=== PATIENT | female | born 2000 | race Caucasian/White ===

== ENCOUNTER 2022-02-16 16:04 | Observation (INO) | payer OTHER ==
[~2022-02-16] VITALS: Ht 167.7 cm; Wt 83.9 kg
[2022-02-16] VITALS (8 sets, daily range): BP systolic 126–146; BP diastolic 82–119
[2022-02-16] MEDS ORDERED: KETOROLAC 15 MG/ML VIAL IVP ONE (16:30)
[2022-02-16 16:46] LABS: BILIRUBIN,URINE NEGATIVE (NEGATIVE); CLARITY,URINE CLEAR; COLOR,URINE YELLOW; GLUCOSE, URINE (UA) NEGATIVE (NEGATIVE); KETONES,URINE NEGATIVE (NEGATIVE); LEUKOCYTE ESTERASE ,URINE TRACE (NEGATIVE); NITRITE,URINE NEGATIVE (NEGATIVE); PROTEIN,URINE TRACE (NEGATIVE)
[2022-02-16 16:51] LABS: BASOPHILS # (AUTO) 0.1 10^3/uL (0.0-0.1); BASOPHILS % (AUTO) 1 % (0-10); EOSINOPHILS # (AUTO) 0.3 10^3/uL (0.0-0.3); EOSINOPHILS % (AUTO) 2 % (0-10); HEMATOCRIT 38 % (35-52); HEMOGLOBIN 12.8 g/dL (11.5-16.0); LYMPHOCYTES # (AUTO) 3.6 10^3/uL (1.0-4.0); LYMPHOCYTES % (AUTO) 26 % (12-44); MEAN CORPUSCULAR HEMOGLOBIN 30 pg (25-34); MEAN CORPUSCULAR HGB CONC 34 g/dL (32-36); MEAN CORPUSCULAR VOLUME 87 fL (80-99); MEAN PLATELET VOLUME 10.1 fL (9.0-12.2); MONOCYTES % (AUTO) 7 % (0-12); NEUTROPHILS # (AUTO) 8.8 10^3/uL (1.8-7.8); NEUTROPHILS % (AUTO) 64 % (42-75); PLATELET COUNT 306 10^3/uL (130-400); WHITE BLOOD COUNT 13.8 10^3/uL (4.3-11.0)
[2022-02-16 16:54] LABS: ALBUMIN 4.4 GM/DL (3.2-4.5)
[2022-02-16 16:55] LABS: POTASSIUM 3.3 MMOL/L (3.6-5.0)
--- NOTE | 2022-02-16 16:55 | ED Abdominal Pain ---
General Chief Complaint: Abdominal/GI Problems Stated Complaint: LOWER RIGHT SIDE ABD PAIN Nursing Triage Note: PT AMB TO [facility] 6 WITH COMPLAINT OF RLQ PAIN THAT STARTED EARLY YESTERDAY MORNING. STATES HAS FELT NAUSEATED. PAIN WORSE WHEN WALKING. (TIERRA PIMENTEL APRN) History of Present Illness Date Seen by Provider: Feb 16, 2022 Time Seen by Provider: 16:10 Initial Comments Patient is a previously 21-year-old female who presents to the emergency department for evaluation of right lower quadrant abdominal pain that began yesterday morning. Patient states the pain is persisted since that time. She denies any nausea/vomiting/diarrhea. States the pain is worse with walking. She denies having any fever. Denies any urinary symptomology. Denies any history of similar symptoms. Denies any history of abdominal surgeries. Patient has not had anything for the pain today. LMP was approximately 1 month ago per her report. (TIERRA PIMENTEL APRN) Allergies and Home Medications Allergies Coded Allergies: No Known Drug Allergies (Unverified , 02/16/22) Patient Home Medication List Home Medication List Reviewed: Yes (TIERRA PIMENTEL APRN) Review of Systems Review of Systems Constitutional: no symptoms reported EENTM: No Symptoms Reported Respiratory: No Symptoms Reported Cardiovascular: No Symptoms Reported Gastrointestinal: See HPI Genitourinary: No Symptoms Reported (TIERRA PIMENTEL APRN) Past Phnzdgs-Kuwcua-Bbtahz Hx Patient Social History Tobacco Use?: No Use of E-Cig and/or Vaping dev: Yes E-Cig or Vaping type used: Nicotine Use of E-Cig and/or Vaping Arnold: Current Someday User Substance use?: No Alcohol Use?: No Alcohol Frequency: Once in a while Pt feels they are or have been: No (TIERRA PIMENTEL APRN) Immunizations Up To Date First/Initial COVID19 Vaccinat: 2020 Second COVID19 Vaccination Nabil: 2020 (TIERRA PIMENTEL APRN) Physical Exam Vital Signs Vital Signs - First Documented 02/16/22 16:10 Temp 37.8 Pulse 107 Resp 22 B/P (MAP) 158/114 (129) Pulse Ox 98 O2 Delivery Room Air (ANDRIA SOSA MD) Vital Signs Capillary Refill : Less Than 3 Seconds (TIERRA PIMENTEL APRN) Height/Weight/BMI Height: '" Weight: lbs. oz. kg; 29.00 BMI Method: General Appearance: WD/WN, no apparent distress HEENT: PERRL/EOMI, normal ENT inspection, TMs normal, pharynx normal Neck: non-tender, full range of motion Respiratory: chest non-tender, lungs clear, normal breath sounds, no respiratory distress, no accessory muscle use Cardiovascular: regular rate, rhythm Gastrointestinal: normal bowel sounds, soft; No guarding; tenderness (Right lower quadrant) Extremities: normal range of motion, non-tender Back: normal inspection, no vertebral tenderness Neurologic/Psychiatric: no motor/sensory deficits, alert, normal mood/affect, oriented x 3 Skin: normal color, warm/dry (TIERRA PIMENTEL APRN) Progress/Results/Core Measures Results/Orders Lab Results Laboratory Tests Test 02/16/22 16:25 02/16/22 16:39 Range/Units White Blood Count 13.8 H 4.3-11.0 10^3/uL Red Blood Count 4.34 3.80-5.11 10^6/uL Hemoglobin 12.8 11.5-16.0 g/dL Hematocrit 38 35-52 % Mean Corpuscular Volume 87 80-99 fL Mean Corpuscular Hemoglobin 30 25-34 pg Mean Corpuscular Hemoglobin Concent 34 32-36 g/dL Red Cell Distribution Width 12.1 10.0-14.5 % Platelet Count 306 130-400 10^3/uL Mean Platelet Volume 10.1 9.0-12.2 fL Immature Granulocyte % (Auto) 0 % Neutrophils (%) (Auto) 64 42-75 % Lymphocytes (%) (Auto) 26 12-44 % Monocytes (%) (Auto) 7 0-12 % Eosinophils (%) (Auto) 2 0-10 % Basophils (%) (Auto) 1 0-10 % Neutrophils # (Auto) 8.8 H 1.8-7.8 10^3/uL Lymphocytes # (Auto) 3.6 1.0-4.0 10^3/uL Monocytes # (Auto) 1.0 0.0-1.0 10^3/uL Eosinophils # (Auto) 0.3 0.0-0.3 10^3/uL Basophils # (Auto) 0.1 0.0-0.1 10^3/uL Immature Granulocyte # (Auto) 0.0 0.0-0.1 10^3/uL Sodium Level 138 135-145 MMOL/L Potassium Level 3.3 L 3.6-5.0 MMOL/L Chloride Level 106 98-107 MMOL/L Carbon Dioxide Level 22 21-32 MMOL/L Anion Gap 10 5-14 MMOL/L Blood Urea Nitrogen 9 7-18 MG/DL Creatinine 0.82 0.60-1.30 MG/DL Estimat Glomerular Filtration Rate 106 BUN/Creatinine Ratio 11 Glucose Level 97 70-105 MG/DL Calcium Level 9.4 8.5-10.1 MG/DL Corrected Calcium 9.1 8.5-10.1 MG/DL Total Bilirubin 0.3 0.1-1.0 MG/DL Aspartate Amino Transf (AST/SGOT) 16 5-34 U/L Alanine Aminotransferase (ALT/SGPT) 21 0-55 U/L Alkaline Phosphatase 42 40-136 U/L C-Reactive Protein High Sensitivity 14.91 H 0.00-0.50 MG/DL Total Protein 7.9 6.4-8.2 GM/DL Albumin 4.4 3.2-4.5 GM/DL Urine Color YELLOW Urine Clarity CLEAR Urine pH 6.0 5-9 Urine Specific [place] 1.025 H 1.016-1.022 Urine Protein TRACE H NEGATIVE Urine Glucose (UA) NEGATIVE NEGATIVE Urine Ketones NEGATIVE NEGATIVE Urine Nitrite NEGATIVE NEGATIVE Urine Bilirubin NEGATIVE NEGATIVE Urine Urobilinogen 0.2 < = 1.0 MG/DL Urine Leukocyte Esterase TRACE H NEGATIVE Urine RBC (Auto) 1+ H NEGATIVE Urine RBC RARE /HPF Urine WBC 5-10 H /HPF Urine Squamous Epithelial Cells 2-5 /HPF Urine Crystals NONE /LPF Urine Bacteria FEW H /HPF Urine Casts NONE /LPF Urine Mucus NEGATIVE /LPF Urine Culture Indicated YES Urine Test NEGATIVE NEGATIVE (ANDRIA SOSA MD) Medications Given in ED Current Medications Medications Dose Ordered Sig/Jaden Route Start Time Stop Time Status Last Admin Dose Admin Iohexol 100 ml ONCE ONCE IV 02/16/22 17:15 02/16/22 17:16 DC 02/16/22 17:27 80 ML Ketorolac Tromethamine 15 mg ONCE ONCE IVP 02/16/22 16:30 02/16/22 16:31 DC 02/16/22 16:41 15 MG Lidocaine/ Epinephrine 10 ml STK-MED ONCE .ROUTE 02/16/22 18:20 02/16/22 18:22 DC 02/16/22 19:41 15 ML Sodium Chloride 100 ml ONCE ONCE IV 02/16/22 17:15 02/16/22 17:16 DC 02/16/22 17:27 80 ML (ANDRIA SOSA MD) Vital Signs/I&O 02/16/22 16:10 Temp 37.8 Pulse 107 Resp 22 B/P (MAP) 158/114 (129) Pulse Ox 98 O2 Delivery Room Air (ANDRIA SOSA MD) Blood Pressure Mean: 129 Progress Progress Note : Progress Note Patient is nontoxic and well-hydrated on exam. She does have some right lower quadrant abdominal tenderness to palpation without marked guarding. Heel tap is negative. Will obtain labs and CT of the abdomen/pelvis. Laboratory evaluation notable for leukocytosis and elevated CRP. CT of the abdomen pelvis notes acute appendicitis. General surgery was contacted who agrees to see the patient. (TIERRA PIMENTEL APRN) Departure Impression Primary Impression: Acute appendicitis Qualified Codes: K35.30 - Acute appendicitis with localized peritonitis, without perforation or gangrene Disposition: ADMITTED INPATIENT Condition: Stable Admissions Decision to Admit Reason: Admit from ER (General) Decision to Admit/Date: Feb 16, 2022 Time/Decision to Admit Time: 18:00 (TIERRA PIMENTEL APRN) Departure-Patient Inst. Referrals: [facility] (PCP/Family) Primary Care Physician ATTENDING PHYSICIAN NOTE: I was physically present as attending physician in the emergency department during the care of this patient, but I was not directly involved in the decision making or delivery of care for this patient. (ANDRIA SOSA MD) TIERRA PIMENTEL APRN Feb 16, 2022 16:55 ANDRIA SOSA MD Feb 16, 2022 20:23
[2022-02-16 16:56] LABS: CALCIUM 9.4 MG/DL (8.5-10.1)
[2022-02-16 16:57] LABS: TOTAL PROTEIN 7.9 GM/DL (6.4-8.2)
[2022-02-16 16:58] LABS: BACTERIA,URINE FEW /HPF; RBC,URINE RARE /HPF
[2022-02-16 16:59] LABS: BILIRUBIN,TOTAL 0.3 MG/DL (0.1-1.0)
[2022-02-16 17:01] LABS: CREATININE SERUM 0.82 MG/DL (0.60-1.30)
[2022-02-16] MEDS ORDERED: IOHEXOL 350 MG/ML 100 ML (OMNIPAQUE 350) VIAL IV ONE (17:15)
[2022-02-16] MEDS ORDERED: NS 100 ML (IVPB) BAG IV ONE (17:15)
--- NOTE | 2022-02-16 17:39 | Diagnostic Imaging Report ---
PROCEDURE: CT abdomen and pelvis with contrast, rule out appendicitis. TECHNIQUE: Multiple contiguous axial images were obtained through the abdomen and pelvis after the administration of intravenous contrast. All CT scans use one or more of the following dose optimizing techniques: automated exposure control, MA and/or KvP adjustment based on patient size and exam type or iterative reconstruction. INDICATION: Right lower quadrant pain. FINDINGS: Lung bases are clear. Liver appears normal. The gallbladder appears normal. Portal vein is patent. Pancreas appears normal. Common duct is not dilated. Spleen is not enlarged. Adrenals are normal. Kidneys appear normal. Small bowel is not dilated. The appendix is thickened with surrounding edema suggesting acute appendicitis. Colon is unremarkable. Uterus and adnexa are unremarkable. Urinary bladder is decompressed. IMPRESSION: Acute appendicitis. There is no periappendiceal abscess or evidence of perforation. Dictated by: Dictated on workstation # [id number]
[2022-02-16] MEDS ORDERED: LIDOCAINE/EPI 1%-1:100,000 (XYLOCAINE) 10 ML ONE (18:20)
[2022-02-16] MEDS ORDERED: LIDOCAINE PF 2% 5 ML (XYLOCAINE) VIAL ONE (18:36)
[2022-02-16] MEDS ORDERED: ROCURONIUM 10 MG/ML 5 ML SYRINGE IV ONE (18:36)
[2022-02-16] MEDS ORDERED: MIDAZOLAM 2 MG/2 ML (VERSED) VIAL ONE (18:36)
[2022-02-16] MEDS ORDERED: fentaNYL INJ 100 MCG/2 ML AMP ONE ×2 (18:36→19:49)
[2022-02-16] MEDS ORDERED: ONDANSETRON 4 MG/2 ML (SDV) Z0FRAN ONE (18:36)
[2022-02-16] MEDS ORDERED: proPOfol 200 MG/20 ML (DIPRIVAN) VIAL IV ONE (18:36)
--- NOTE | 2022-02-16 18:56 | Consultation - Surgery ---
CHINO GREEN 02/16/22 1856: History of Present Illness History of Present Illness Patient Consulted On(dylan/time) 02/16/22 18:41 Date Seen by Provider: Feb 16, 2022 Time Seen by Provider: 18:42 History of Present Illness Surgery consult for patient Gerardo Gordon, 21 yo F, who arrived to ED with chief complaint of abdominal pain. Gerardo was woke from sleep yesterday at 4am due to sudden abdominal pain. Since that time it has been constant in the RLQ and radiating toward her umbilicus. Described as tight and cramping and is 6 or 7/10 when at rest. The pain worsens with movement and escalates to 8/10. Tylenol has helped some.Nothing triggered the pain and this has never happened to her before. She was seen at [facility] at 3:30pm today. They were concerned for potential appendicitis or ovarian cyst and referred her to the hospital. Pt note they performed a UA at [facility] and she was informed that there was trace blood in her urine. Pt states date of last menstrual period was just short of 1 month ago. She has nothing to drink since 4pm today and nothing to eat since 1pm today. Denies use of anticoagulant medication. Meds: Oral control, Tylenol prn All: none PMH: none PSH: laser treatments for birthmark on right side of her face (was placed under anesthesia) FamHx: none; both mother and father are living SocHx: pt uses nicotine positive vape; has approx 5 alcoholic drinks every few weeks; denies tobacco and illicit substance use Allergies and Home Medications Allergies Coded Allergies: No Known Drug Allergies (Unverified , 02/16/22) Patient Home Medication List Home Medication List Reviewed: Yes Past Ryngtkd-Vbvogl-Vcsyxl Hx Patient Social History Smoking Status: Never a Smoker Type Used: Electronic/Vapor (positve for nicotine) Alcohol Use?: Yes (pt reports having maybe 5 drinks approx every few weeks) Substance type: Nicotine (vape) Have you traveled recently?: No Surgeries History of Surgeries: No (pt has had laser treatment on right face for birthmark) Respiratory History of Respiratory Disorde: No Cardiovascular History of Cardiac Disorders: No Neurological History of Neurological Disord: No Reproductive System : No Genitourinary History of Genitourinary Disor: No Gastrointestinal History of Gastrointestinal Di: No Musculoskeletal History of Musculoskeletal Dis: No Endocrine History of Endocrine Disorders: No HEENT History of HEENT Disorders: No Loss of Vision: Denies Cancer History of Cancer: No Psychosocial History of Psychiatric Problem: No Integumentary History of Skin or Integumenta: No Blood Transfusions History of Blood Disorders: No Family Medical History Significant Family History: No Pertinent Family Hx (pt states there is no family medical hx and both mother and father are still living) Review of Systems-General Constitutional: fever; No malaise, No weakness EENTM: No blurred vision, No vision loss, No epistaxis Respiratory: No cough, No short of breath Cardiovascular: No chest pain, No palpitations Gastrointestinal: RLQ, abdominal pain (RLQ); No constipation, No diarrhea; nausea (infrequent nausea yesterday); No vomiting Genitourinary: No dysuria; hematuria (1+ RBCs on UA) : No (negative urine test 02/16) Musculoskeletal: No muscle pain, No muscle stiffness Skin: No dryness, No rash Psychiatric/Neurological: Denies Headache, Denies Numbness, Denies Paresthesia, Denies Tingling, Denies Weakness Physical Exam-General Problems Physical Exam Vital Signs Vital Signs - First Documented 02/16/22 16:10 Temp 37.8 Pulse 107 Resp 22 B/P (MAP) 158/114 (129) Pulse Ox 98 O2 Delivery Room Air Capillary Refill : Less Than 3 Seconds General Appearance: no apparent distress, obese Eyes: Bilateral Eye PERRL, Bilateral Eye EOMI HEENT: PERRL/EOMI; No scleral icterus (R), No scleral icterus (L), No photophobia Neck: non-tender, supple Respiratory: chest non-tender, no respiratory distress, no accessory muscle use Cardiovascular: regular rate, rhythm, no murmur, tachycardia Peripheral Pulses: 2+ Radial Pulses (R), 2+ Radial Pulses (L) Gastrointestinal: normal bowel sounds, soft, no organomegaly, tenderness (RLQ) Rectal: deferred Back: no CVA tenderness, no vertebral tenderness Extremities: normal range of motion, non-tender, no pedal edema Neurologic/Psychiatric: alert, oriented x 3 Skin: normal color, warm/dry; No diaphoresis Lymphatic: no adenopathy Data Review Labs Laboratory Tests 02/16/22 16:25: White Blood Count 13.8H, Red Blood Count 4.34, Hemoglobin 12.8, Hematocrit 38, Mean Corpuscular Volume 87, Mean Corpuscular Hemoglobin 30, Mean Corpuscular He moglobin Concent 34, Red Cell Distribution Width 12.1, Platelet Count 306, Mean Platelet Volume 10.1, Immature Granulocyte % (Auto) 0, Neutrophils (%) (Auto) 64, Lymphocytes (%) (Auto) 26, Monocytes (%) (Auto) 7, Eosinophils (%) (Auto) 2, Basophils (%) (Auto) 1, Neutrophils # (Auto) 8.8H, Lymphocytes # (Auto) 3.6, Monocytes # (Auto) 1.0, Eosinophils # (Auto) 0.3, Basophils # (Auto) 0.1, Immature Granulocyte # (Auto) 0.0, Sodium Level 138, Potassium Level 3.3L, Chlor lemuel Level 106, Carbon Dioxide Level 22, Anion Gap 10, Blood Urea Nitrogen 9, Creatinine 0.82, Estimat Glomerular Filtration Rate 106, BUN/Creatinine Ratio 11, Glucose Level 97, Calcium Level 9.4, Corrected Calcium 9.1, Total Bilirubin 0.3, Aspartate Amino Transf (AST/SGOT) 16, Alanine Aminotransferase (ALT/SGPT) 21, Alkaline Phosphatase 42, C-Reactive Protein High Sensitivity 14.91H, Total Protein 7.9, Albumin 4.4 02/16/22 16:39: Urine Color YELLOW, Urine Clarity CLEAR, Urine pH 6.0, Urine Specific [place] 1.025H, Urine Protein TRACEH, Urine Glucose (UA) NEGATIVE, Urine Ketones NEGATIVE, Urine Nitrite NEGATIVE, Urine Bilirubin NEGATIVE, Urine Urobilinogen 0.2, Urine Leukocyte Esterase TRACEH, Urine RBC (Auto) 1+H, Urine RBC RARE, Urine WBC 5-10H, Urine Squamous Epithelial Cells 2-5, Urine Crystals NONE, Urine Bacteria FEWH, Urine Casts NONE, Urine Mucus NEGATIVE, Urine Culture Indicated YES, Urine Test NEGATIVE Radiology NAME: GERARDO GORDON [facility] REC#: [id number] PT STATUS: REG ER : 2002 PHYSICIAN: TIERRA PIMENTEL APRN ADMIT DATE: 02/16/22/ER Signed Date of Exam:02/16/22 CT ABD/PELV W (APPENDICITIS) PROCEDURE: CT abdomen and pelvis with contrast, rule out appendicitis. TECHNIQUE: Multiple contiguous axial images were obtained through the abdomen and pelvis after the administration of intravenous contrast. All CT scans use one or more of the following dose optimizing techniques: automated exposure control, MA and/or KvP adjustment based on patient size and exam type or iterative reconstruction. INDICATION: Right lower quadrant pain. FINDINGS: Lung bases are clear. Liver appears normal. The gallbladder appears normal. Portal vein is patent. Pancreas appears normal. Common duct is not dilated. Spleen is not enlarged. Adrenals are normal. Kidneys appear normal. Small bowel is not dilated. The appendix is thickened with surrounding edema suggesting acute appendicitis. Colon is unremarkable. Uterus and adnexa are unremarkable. Urinary bladder is decompressed. IMPRESSION: Acute appendicitis. There is no periappendiceal abscess or evidence of perforation. Dictated by: Dictated on workstation # [id number] Dict: 02/16/22 1737 Trans: 02/16/22 1750 [id number] Interpreted by: MANSI MCGARRY MD Electronically signed by: MANSI MCGARRY MD 02/16/22 1750 Assessment/Plan Assessment/Plan Assessment/Plan Acute Appendicitis Leukocytosis Elevated CRP WBC, RBC, and bacteria in UA Appendectomy Pain management IV ketoralac IV antibiotic start for potential infection ARACELI CAMARA DO 02/16/22 1926: History of Present Illness History of Present Illness Time Seen by Provider: 18:46 History of Present Illness Surgery asked to consult regarding RLQ pain, CT shows appendicitis. HPI: pt is a 21yo female with RLQ pain that woke her at 4am on Wednesday and has not gone away. Radiates to umbilicus. Allergies and Home Medications Allergies Coded Allergies: No Known Drug Allergies (Unverified , 02/16/22) Patient Home Medication List Home Medication List Reviewed: Yes Past Mkcehrv-Rrfwsi-Luimtu Hx Patient Social History Smoking Status: Never a Smoker Type Used: Electronic/Vapor (positve for nicotine) Alcohol Use?: Yes (pt reports having maybe 5 drinks approx every few weeks) Substance type: Nicotine (vape) Surgeries History of Surgeries: No (pt has had laser treatment on right face for birthmark) Respiratory History of Respiratory Disorde: No Cardiovascular History of Cardiac Disorders: No Neurological History of Neurological Disord: No Reproductive System : No Genitourinary History of Genitourinary Disor: No Gastrointestinal History of Gastrointestinal Di: No Musculoskeletal History of Musculoskeletal Dis: No Endocrine History of Endocrine Disorders: No HEENT History of HEENT Disorders: No Loss of Vision: Denies Hearing Impairment: Denies Cancer History of Cancer: No Psychosocial History of Psychiatric Problem: No Integumentary History of Skin or Integumenta: No Blood Transfusions History of Blood Disorders: No Family Medical History Significant Family History: Diabetes (states parents do not have DM) Review of Systems-General Constitutional: fever; No malaise, No weakness EENTM: No blurred vision, No vision loss, No epistaxis Respiratory: No cough, No short of breath Cardiovascular: No chest pain, No palpitations Gastrointestinal: abdominal pain (RLQ); No constipation, No diarrhea; nausea (infrequent nausea yesterday); No vomiting Genitourinary: No dysuria; hematuria (1+ RBCs on UA) : No (negative urine test 02/16) Musculoskeletal: No muscle pain, No muscle stiffness Skin: No dryness; lesions (birthmark, right sided of face), rash Psychiatric/Neurological: Denies Headache, Denies Numbness, Denies Paresthesia, Denies Tingling, Denies Weakness Physical Exam-General Problems Physical Exam General Appearance: no apparent distress, obese Eyes: Bilateral Eye PERRL, Bilateral Eye EOMI HEENT: No scleral icterus (R), No scleral icterus (L), No photophobia Neck: non-tender, supple Respiratory: chest non-tender, lungs clear, normal breath sounds, no resp iratory distress, no accessory muscle use Cardiovascular: no murmur, tachycardia Peripheral Pulses: 2+ Radial Pulses (R), 2+ Radial Pulses (L) Gastrointestinal: normal bowel sounds, soft, no organomegaly, tenderness (RLQ), hernia (small umbilical) Rectal: deferred Back: no CVA tenderness, no vertebral tenderness Extremities: normal range of motion, non-tender, no pedal edema Neurologic/Psychiatric: crosscutter II-XII nml as tested, alert, normal mood/affect, oriented x 3 Skin: normal color, warm/dry; No diaphoresis; other (large birthmark on right cheek) Lymphatic: no adenopathy (neck, axilla or groin) Assessment/Plan Assessment/Plan Assessment/Plan Acute Appendicitis Leukocytosis Elevated CRP WBC, RBC, and bacteria in UA I reviewed the CT myself and saw a small umbilical hernia and possible ovarian cyst on the right; will look during surgery. Plan is Laparoscopic Appendectomy possible open; will get consent. Went over risks and complications not limited to pain, bleeding, infection, scar, damage to bowel and need for further procedure. Will take her tonight to OR, pain meds, IV ABX sap solution manager consultant to OR. I also discussed her case with ER provider. All questions answered to her satisfaction. Supervisory-Addendum Brief Verification & Attestation Participated in pt care: history, MDM, physical Personally performed: exam, history, MDM, supervision of care Care discussed with: Medical Student Procedures: n/a Verification and Attestation of Medical Student E/M Service A medical student performed and documented this service. I then reviewed and verified all information documented by the medical student and made modifications to such information, when appropriate. I personally performed a physical exam, medical decision making and then discussed any differences between the notes and made revisions as necessary to create one note. Araceli Camara , 02/16/22 , 19:30 CHINO GREEN Feb 16, 2022 18:56 ARACELI CAMARA DO Feb 16, 2022 19:26
[2022-02-16] MEDS ORDERED: ceFAZolin INJECTION 2,000 MG ONE (19:43)
[2022-02-16] MEDS ORDERED: GLYCOPYRROLATE 0.2 MG/ML (ROBINUL) 2 ML VIAL ONE (20:05)
[2022-02-16] MEDS ORDERED: NEOSTIGMINE (BLOXIVERZ ) 1 MG/1ML 10 ML VIAL ONE (20:05)
[2022-02-16] MEDS ORDERED: SEVOFLURANE (ULTANE) 15 ML INHAL SOLN ONE (20:08)
--- NOTE | 2022-02-16 20:13 | Progress Note-Post Operative ---
Post-Operative Progess Note Surgeon (s)/Counseling Case Manager (s) Surgeon ARACELI CAMARA DO Counseling Case Manager: YVES Watson Pre-Operative Diagnosis Acute appy Post-Operative Diagnosis same Procedure & Operative Findings Date of Procedure 02/16/22 Procedure Performed/Findings PROCEDURE: Laparoscopic appendectomy. COMPLICATIONS: None. INDICATIONS: The patient is a 21 year old female who has been having right lower quadrant abdominal pain. Patient's exam consistent with appendicitis. I discussed risk and benefits of laparoscopic appendectomy and all indicated procedures with the possibility being a normal appendix. The patient understands the risks and benefits and wishes to proceed. Consent was signed on the chart. DESCRIPTION OF PROCEDURE: The patient was taken to the operating suite, prepped and draped in a sterile fashion. Timeout was performed. Local anesthetic was infiltrated just above the umbilicus and a #11- blade scalpel was used to make a skin incision. Cautery was used to dissect down to the fascia and scored. Kochers were used to grasp and elevate it and the abdomen was then entered. A 0 Vicryl was placed in a [id number] fashion for closure at the end of the case. The balloon trocar was inserted into the abdomen and pneumoperitoneum was achieved. Under direct visualization of the laparoscope, a 5 mm trocar was placed in the suprapubic region and a 5 mm trocar was placed in the left lower quadrant. Appendix was located,it was inflamed and thickened. The mesoappendix was divided using the Ligasure in a stepwise fashion; clamping, coagulating and then transecting. In this fashion dividing the meso- appendix so that we were at the base of the appendix. Once at the base an Endo- CHECO 2.5 stapler was then fired across the appendix. It was then placed in an Endobag and removed through the 12 mm trocar site. The abdomen was then irrigated and suctioned. No other pathology noted. The abdomen was then desufflated and the trocars were removed. The 0 Vicryl placed at the beginning of the case was then tied closing the 12 mm fascial defect. The skin was then closed using 4-0 Monocryl in a subcuticular fashion. The abdomen was then washed and dried and Skin Affix was placed over the inc isions. The patient tolerated the procedure well without any complications and was taken to the recovery room in stable condition. Anesthesia Type GET Estimated Blood Loss Estimated blood loss (mL): scant Specimens/Packing Specimens Removed appendix ARACELI CAMARA DO Feb 16, 2022 20:13
[2022-02-16] MEDS ORDERED: HYDROcodone/APAP 5 MG/325 MG (LORTAB) TAB PO PRN (20:15)
[2022-02-16] MEDS ORDERED: ONDANSETRON 4 MG/2 ML (SDV) Z0FRAN IVP PRN ×2 (20:15→20:30)
[2022-02-16] MEDS ORDERED: SUGAMMADEX 500 MG/5 ML VIAL (BRIDION) IV ONE (20:20)
[2022-02-16] MEDS ORDERED: HYDROmorphone 2 MG/ML VIAL (DILAUDID) IV ONE (20:30)
[2022-02-16] MEDS ORDERED: morphine INJ 10 MG/ML 1ML (SYR OR VIAL) IVP ONE (20:30)
[2022-02-16] MEDS ORDERED: MEPERIDINE (DEMEROL) INJ 50 MG/ML IVP ONE (20:30)
[2022-02-16] MEDS ORDERED: PROMETHAZINE INJ 25 MG/ML (PHENERGAN) AMP IVP ONE (20:30)
[2022-02-16] MEDS: LACTATED RINGERS 1,000 ML IV SCH (20:41)
[2022-02-16] MEDS: ceFAZolin INJECTION 2,000 MG in NS (IVPB) 50 ML IV SCH (21:37)
[2022-02-17] MEDS: ceFAZolin INJECTION 2,000 MG in NS (IVPB) 50 ML IV SCH (03:21)
[2022-02-17 03:51] VITALS: BP 135/82
[2022-02-17] MEDS: LACTATED RINGERS 1,000 ML IV SCH (04:05)
[2022-02-17] MEDS ORDERED: FLU QUADRIvalent (6 months+) 60 mcg/0.5 ml 2022-23 (Fluzone) IM ONE (06:45)
--- NOTE | 2022-02-17 07:06 | Anesthesia-General Post-Op ---
General Patient Condition Mental Status/LOC: Same as Preop Cardiovascular: Satisfactory Nausea/Vomiting: Absent Respiratory: Satisfactory Pain: Controlled Complications: Absent Post Op Complications Complications None Follow Up Care/Instructions Patient Instructions None needed. Anesthesia/Patient Condition Patient Condition Patient is doing well, no complaints, stable vital signs, no apparent adverse anesthesia problems. No complications reported per nursing. BRIAN SERVIN CRNA Feb 17, 2022 07:06
[2022-02-17 07:54] VITALS: BP 144/88
--- NOTE | 2022-02-17 08:22 | Progress Note - Surgery ---
PETERCHINO Inga 02/17/22 0822: Subjective Date Seen by a Provider: Feb 17, 2022 Time Seen by a Provider: 07:25 Subjective/Events-last exam Our patient is a 21 yo F at POD#1 prior to appendectomy. This morning she is quietly sleeping in bed, and in no acute distress. Her mother is with her today. Pt states she is doing alright. Complains of throat pain and abdominal pain at her incsion sites. Incisions are clean and dry, with mild erythema and no purulence. She has an ice pack on her abdomen this morning. States it hurts to pull herself up from supine to sitting or to lean forward too much. Pt has been eating jello and drinking plenty of fluids. Has been urinating, but not had a bowel movement since her procedure. States her pain is tolerable at 3/10. Ambulated once since surgery. Is breathing fine and using her incentive spirometer. Pt states that she feels comfortable going home today. Review of Systems General: No Chills, No Fatigue HEENT: No Head Aches, No Visual Changes; Sore Throat Pulmonary: No Dyspnea, No Cough Cardiovascular: No: Chest Pain, Palpitations Gastrointestinal: Abdominal Pain; No: Nausea, Vomiting Genitourinary: No Dysuria, No Hematuria Musculoskeletal: other (pain at abdomnal wall upon movement); No: back pain Neurological: No: Weakness, Numbness Objective Exam Vital Signs Date Time Temp Pulse Resp B/P (MAP) Pulse Ox O2 Delivery O2 Flow Rate FiO2 02/17/22 07:54 36.7 80 20 144/88 (106) 97 Room Air 02/17/22 03:51 37.4 96 18 135/82 (99) 96 Room Air 02/16/22 23:21 36.6 87 18 132/84 (100) 94 Room Air 02/16/22 22:25 Room Air 02/16/22 21:25 Room Air 02/16/22 21:15 36.6 20 128/82 (97) 94 Room Air 02/16/22 21:15 Room Air 02/16/22 21:10 20 126/97 (107) 94 Room Air 02/16/22 21:05 Room Air 02/16/22 21:00 Room Air 02/16/22 21:00 18 131/88 (102) 96 Room Air 02/16/22 20:52 OxyMask 2.00 02/16/22 20:50 20 137/92 (107) 99 OxyMask 1.00 02/16/22 20:46 OxyMask 4.00 02/16/22 20:40 18 144/97 (113) 100 OxyMask 5.00 02/16/22 20:35 20 138/102 (114) 100 OxyMask 5.00 02/16/22 20:35 OxyMask 5.00 02/16/22 20:25 36.4 20 146/119 (128) 99 OxyMask 6.00 02/16/22 20:25 OxyMask 6.00 02/16/22 19:04 94 18 134/91 98 Room Air 02/16/22 16:10 37.8 107 22 158/114 (129) 98 Room Air I & O 02/17/22 07:00 Intake Total 600 ml Output Total 100 ml Balance 500 ml Capillary Refill : Less Than 3 Seconds General Appearance: No Apparent Distress, WD/WN HEENT: PERRL/EOMI; No Scleral Icterus (L), No Scleral Icterus (R) Neck: Non Tender, Supple Respiratory: Chest Non Tender, Normal Breath Sounds, No Accessory Muscle Use Cardiovascular: Regular Rate, Rhythm, No Murmur, Normal Peripheral Pulses Peripheral Pulses: 2+ Radial Pulses (R), 2+ Radial Pulses (L) Gastrointestinal: normal bowel sounds, soft, no organomegaly; No distended; tenderness (RLQ), hernia (small umbilical) Neurologic/Psychiatric: Alert, Oriented x3, Normal Mood/Affect Skin: No Diaphoresis; Erythema (very mild at incision sites), Other (large birthmark on right side of face) Results Lab Laboratory Tests 02/16/22 16:25: White Blood Count 13.8H, Red Blood Count 4.34, Hemoglobin 12.8, Hematocrit 38, Mean Corpuscular Volume 87, Mean Corpuscular Hemoglobin 30, Mean Corpuscular Hemoglobin Concent 34, Red Cell Distribution Width 12.1, Platelet Count 306, M idania Platelet Volume 10.1, Immature Granulocyte % (Auto) 0, Neutrophils (%) (Auto) 64, Lymphocytes (%) (Auto) 26, Monocytes (%) (Auto) 7, Eosinophils (%) (Auto) 2, Basophils (%) (Auto) 1, Neutrophils # (Auto) 8.8H, Lymphocytes # (Auto) 3.6, Monocytes # (Auto) 1.0, Eosinophils # (Auto) 0.3, Basophils # (Auto) 0.1, Immature Granulocyte # (Auto) 0.0, Sodium Level 138, Potassium Level 3.3L, Chloride Level 106, Carbon Dioxide Level 22, Anion Gap 10, Blood Urea Nitrogen 9, Creatinine 0.82, Estimat Glomerular Filtration Rate 106, BUN/Creatinine Ratio 11, Glucose Level 97, Calcium Level 9.4, Corrected Calcium 9.1, Total Bilirubin 0.3, Aspartate Amino Transf (AST/SGOT) 16, Alanine Aminotransferase (ALT/SGPT) 21, Alkaline Phosphatase 42, C-Reactive Protein High Sensitivity 14.91H, Total Protein 7.9, Albumin 4.4 02/16/22 16:39: Urine Color YELLOW, Urine Clarity CLEAR, Urine pH 6.0, Urine Specific Valier 1.025H, Urine Protein TRACEH, Urine Glucose (UA) NEGATIVE, Urine Ketones NEGATIVE, Urine Nitrite NEGATIVE, Urine Bilirubin NEGATIVE, Urine Urobilinogen 0.2, Urine Leukocyte Esterase TRACEH, Urine RBC (Auto) 1+H, Urine RBC RARE, Urine WBC 5-10H, Urine Squamous Epithelial Cells 2-5, Urine Crystals NONE, Urine Bacteria FEWH, Urine Casts NONE, Urine Mucus NEGATIVE, Urine Culture Indicated YES, Urine Test NEGATIVE Assessment/Plan Assessment/Plan Assessment/Plan Acute Appendicitis - POD#1 Leukocytosis Elevated CRP WBC, RBC, and bacteria in UA Continue pain management. Transition to diet of solid foods as tolerated. Consider discharge today ARACELI ZAMORA DO 02/17/22 1258: Subjective Time Seen by a Provider: 11:07 Subjective/Events-last exam Pt seen and examined, states pain is minimal and is tolerating diet. She is asking to go home. Review of Systems Pulmonary: No Dyspnea, No Cough Cardiovascular: No: Chest Pain, Palpitations Gastrointestinal: Abdominal Pain; No: Nausea, Vomiting Objective Exam General Appearance: No Apparent Distress, WD/WN HEENT: PERRL/EOMI Respiratory: Chest Non Tender, Lungs Clear, Normal Breath Sounds, No Accessory Muscle Use, No Respiratory Distress Cardiovascular: Regular Rate, Rhythm, No Murmur Gastrointestinal: soft, no organomegaly, tenderness (at incisions), other (incisions c/d/i) Neurologic/Psychiatric: Alert, Oriented x3 Skin: Other (large birthmark on right side of face) Assessment/Plan Assessment/Plan Assessment/Plan S/P Lap appy for Acute Appendicitis - POD#1 Plan to d/c IV and d/c home Supervisory-Addendum Brief Verification & Attestation Participated in pt care: history, MDM, physical Personally performed: exam, history, MDM, supervision of care Care discussed with: Medical Student Procedures: n/a Verification and Attestation of Medical Student E/M Service A medical student performed and documented this service. I then reviewed and verified all information documented by the medical student and made modifications to such information, when appropriate. I personally performed a physical exam, medical decision making and then discussed any differences between the notes and made revisions as necessary to create one note. Araceli Zamora , 02/17/22 , 12:57 CHINO GREEN Feb 17, 2022 08:22 ARACELI ZAMORA DO Feb 17, 2022 12:58
[2022-02-17] MEDS ORDERED: PANTOPRAZOLE 40 MG (PROTONIX) VIAL IVP SCH (09:00)
[2022-02-17 11:30] VITALS: BP 144/88
[2022-02-17] MEDS ORDERED: ACHD5005 PO (12:53)
--- NOTE | 2022-02-17 12:55 | Discharge Inst-Surgical ---
Discharge Inst-Surgical Depart Medication/Instructions New, Converted or Re-Newed RX: Transmitted to Pharmacy Patient Instructions Follow up Appt: Make appointment for 1 week. [phone] Instructions: No lifting greater than 20 pounds. No strenuous activity. May shower in 24 hours, no tub bath or soaking. Use incentive spirometer at home as directed. No Smoking Skin/Wound Care: May remove bandages in am. You need to leave the Dermabond on incision it will fall off on it's own. Symptoms to Report: Appetite Changes, Extremity Discoloration, Numbness/Tingling, Swelling Increased, Bleeding Excessive, Eyesight Changes, Pain Increased, Urine Color Change, Constipation(Persistent), Fever over 101 degree F, Pain/Pressure in chest, Urinating Difficulty, Cough Up/Vomit Blood, Heart Beat Irreg/Pounding, Pain/Pressure in jaw, Cramps in feet or legs, Lightheadedness, Pain/Pressure in shoulder, Diarrhea(Persistent), Memory Changes Suddenly, Questions/Concerns, Weight gain consecutive days, Dizziness/Fainting, Nausea/Vomiting, Shortness of Breath, Weight gain over 2 pounds If questions or concerns contact your physician Or seek help at emergency department. Activity Activity as Tolerated: Yes Activity Instructions: Avoid Stress to Incision Driving Instructions: No Driving/Refer to Dr. Alaniz Discharge Diet: No Restrictions Diet After 24 Hours: Clear Liquid if Nauseous If Any Problems/Questions/Issu: Contact Your Physician, Go to Emergency Room Skin/Wound Care Infection Signs and Symptoms: Increased Redness, Foul Odor of Wound, Increased Drainage, Skin Itchy or Has a Rash, Increased Swelling, Temperature Above 101 F Bathing Instructions: Shower Stitches/Roland/Dermabond Dis: ARACELI Black DO Feb 17, 2022 12:55
== END 2022-02-17 13:19 | disposition home or self-care (01) ==
LOC: ER 16:08 → SDC 18:57 → 4TH 21:15
PROVIDERS: ADMIT Surgery; ATTEND Surgery
DX: K35.30 Acute appendicitis with localized peritonitis, without perforation or gangrene (principal); F17.210 Nicotine dependence, cigarettes, uncomplicated; D72.829 Elevated white blood cell count, unspecified
CPT/HCPCS: 44970; 74177; 80053; 81000; 84703 ×2; 85025; 86141; 87088; 94664; 96366; 96375; 99283; G0008; 36415; 90471; 90686

== ENCOUNTER 2022-06-15 23:48 | Emergency (ER) | payer OTHER ==
[~2022-06-15] VITALS: Ht 165 cm; Wt 86.2 kg
[~2022-06-15 23:48] MED LIST: ACHD5005 PO
[2022-06-15 23:54] VITALS: BP 143/106
[2022-06-16] MEDS ORDERED: OSLT75C PO (01:01)
--- NOTE | 2022-06-16 01:03 | ED General ---
General Chief Complaint: Cough/Cold/Flu Symptoms Stated Complaint: CONGESTED,FEVER 102.,DIARRHEA,NAUSEA,KELLER,SORE THROA Nursing Triage Note: INTERMITTANT FEVER, LEFT SIDED SORE THROAT X3 WEEKS. Source of Information: Patient Exam Limitations: No Limitations History of Present Illness Date Seen by Provider: Jun 15, 2022 Time Seen by Provider: 23:52 Initial Comments This 21-year-old young lady presents to the emergency room with complaints of sore throat, intermittent fever, nausea, headache, cough, and some diarrhea. Upon further questioning, it appears she actually has had waves of symptoms and possibly stacked illnesses. Fever returned about 2 days ago with a recurrence of sore throat. Her first round of symptoms started about 3 weeks ago. She is febrile and tachycardic at present. Allergies and Home Medications Allergies Coded Allergies: No Known Drug Allergies (Unverified , 02/16/22) Patient Home Medication List Home Medication List Reviewed: Yes Hydrocodone Bit/Acetaminophen (HYDROcodone/APAP 5 MG/325 MG TAB) 1 Tab Tab, 1 EA PO Q8H PRN for PAIN-MODERATE (5-7) Prescribed by: ARACELI CAMARA on 02/17/22 1254 Oseltamivir Phosphate (Tamiflu) 75 Mg Cap, 75 MG PO BID Prescribed by: ANDRIA WATKINS on 06/16/22 0101 Review of Systems Review of Systems Constitutional: see HPI EENTM: see HPI Respiratory: see HPI Cardiovascular: see HPI Gastrointestinal: see HPI Genitourinary: no symptoms reported : No Musculoskeletal: no symptoms reported Skin: no symptoms reported Psychiatric/Neurological: See HPI Hematologic/Lymphatic: No Symptoms Reported Past Szllast-Oahvne-Uhjkrd Hx Patient Social History Tobacco Use?: No Use of E-Cig and/or Vaping dev: Yes E-Cig or Vaping type used: Nicotine Substance use?: No Alcohol Use?: Yes Alcohol Frequency: Several times a month Pt feels they are or have been: No Immunizations Up To Date First/Initial COVID19 Vaccinat: X2 Second COVID19 Vaccination Nabil: 2020 Past Medical History Surgery/Hospitalization HX: APPENDECTOMY Surgeries: Yes (pt has had laser treatment on right face for birthmark) Appendectomy Respiratory: No Cardiac: No Neurological: No : No Last Menstrual Period: Jun 13, 2022 Genitourinary: No Gastrointestinal: No Musculoskeletal: No Endocrine: No HEENT: No Loss of Vision: Denies Hearing Impairment: Denies Cancer: No Psychosocial: No Integumentary: Yes (Port wine stain on the right side of body) Blood Disorders: No Family Medical History Diabetes Physical Exam Vital Signs Vital Signs - First Documented 3 23:54 Temp 38.2 Pulse 109 Resp 18 B/P (MAP) 143/106 (118) Pulse Ox 99 O2 Delivery Room Air Capillary Refill : Less Than 3 Seconds Height, Weight, BMI Height: '" Weight: lbs. oz. kg; 31.00 BMI Method: General Appearance: No Apparent Distress, WD/WN HEENT: PERRL/EOMI, TMs Normal, Pharyngeal Erythema; No Tonsillar Exudate, No Tonsillar Enlargement Neck: Normal Inspection Respiratory: Lungs Clear, Normal Breath Sounds, No Accessory Muscle Use; No Crackles Cardiovascular: No Edema, No Murmur, Tachycardia Gastrointestinal: Non Tender, Soft Extremity: Normal Inspection, No Pedal Edema Neurologic/Psychiatric: Alert, Oriented x3, No Motor/Sensory Deficits, Normal Mood/Affect Skin: Warm/Dry, Other (Large port wine stain on much of the right half of the body) Progress/Results/Core Measures Suspected Sepsis SIRS Temperature: Pulse: 109 Respiratory Rate: 18 Blood Pressure 143 /106 Mean: 118 Results/Orders Lab Results Laboratory Tests Test 06/15/22 23:55 Range/Units Influenza Type A (RT-PCR) Detected H Not Detecte Influenza Type B (RT-PCR) Not Detected Not Detecte SARS-CoV-2 RNA (RT-PCR) Not Detected Not Detecte Group A Streptococcus Screen NEGATIVE NEGATIVE Micro Results Microbiology 06/15/22 Throat Culture - Preliminary, Resulted No Beta Strep isolated My Orders Orders - ANDRIA SOSA MD Rapid Strep A Screen (06/15/22 23:52) Covid 19 Inhouse Test (06/15/22 23:52) Influenza A And B By Pcr (06/15/22 23:52) Vital Signs/I&O 06/15/22 23:54 Temp 38.2 Pulse 109 Resp 18 B/P (MAP) 143/106 (118) Pulse Ox 99 O2 Delivery Room Air Capillary Refill : Less Than 3 Seconds Blood Pressure Mean: 118 Progress Note : Progress Note Patient tested positive for influenza A. Since the most recent round of symptoms started about 2 days ago, she is still within the window of treatment for Tamiflu. She was educated on the risks and benefits of Tamiflu and a prescription was provided. See discharge instructions for further discussion. Departure Impression Primary Impression: Influenza A Disposition: 01 HOME, SELF-CARE Condition: Stable Departure-Patient Inst. Decision time for Depature: 00:58 Referrals: [facility] (PCP/Family) Primary Care Physician Patient Instructions: Flu Add. Discharge Instructions: You have influenza A. Avoid contact with others until you are free of fever for at least 24 hours without the use of fever reducing medications. For pain and fever you may take ibuprofen up to 600 mg every 6 hours as needed and/or Tylenol (acetaminophen) up to 1000 mg every 6 hours as needed. You may additionally take [id number] medications for cough or congestion. Please review active ingredients on those medications to be sure you are not doubling up on any particular medication. Drink plenty of clear liquids to stay well-hydrated. If you elect to start Tamiflu, please do so as soon as possible. It is most effective if started within 48 hours. Return to care if you have worsening symptoms despite following these instructions. All discharge instructions reviewed with patient and/or family. Voiced understanding. Scripts Oseltamivir Phosphate (Tamiflu) 75 Mg Cap 75 MG PO BID, #10 CAP Prov: ANDRIA SOSA MD 06/16/22 Work/School Note: School/Childcare Release Date Seen in the Emergency Department: Jun 16, 2022 Time Dismissed from Emergency Department: 01:15 Return to School: Jun 18, 2022 Restrictions: Return-No Fever (24hrs), Return-No Vomiting(24hrs) ANDRIA SOSA MD Jun 16, 2022 01:03
== END 2022-06-16 01:05 | disposition home or self-care (01) ==
LOC: EDUNIT# 23:48 → ER 23:51
DX: J10.1 Influenza due to other identified influenza virus with other respiratory manifestations (principal); F17.290 Nicotine dependence, other tobacco product, uncomplicated; Z20.822 Contact with and (suspected) exposure to COVID-19
CPT/HCPCS: 87430; 87636; 99283

== ENCOUNTER 2022-07-21 05:24 | Emergency (ER) | payer OTHER ==
[~2022-07-21] VITALS: Ht 165.1 cm; Wt 83.9 kg
[~2022-07-21 05:24] MED LIST changes: +OSLT75C PO
[2022-07-21] MEDS ORDERED: NS IV 1000 ML 1,000 ML IV STA (05:43)
--- NOTE | 2022-07-21 05:54 | ED EENT ---
History of Present Illness General Chief Complaint: Oral/Throat Problems Stated Complaint: SORE THROAT/GLANDS SWOLLEN Nursing Triage Note: PT AMB TO RM 6 W C/O LEFT SIDED SORE THROAT AND SWOLLEN LYMPH NODES SX 07/19/22, A&OX4. Source: patient Exam Limitations: no limitations (ASHISH CARR MD) History of Present Illness Date Seen by Provider: Jul 21, 2022 Time Seen by Provider: 05:38 Initial Comments Patient is a 21-year-old female who presents to the emergency room with a chief complaint of sore throat onset 2 days ago. She states it hurts more on the left than the right. She states she has neck swelling. She is not aware of fever as she has been taking Tylenol and ibuprofen. Last dose of Tylenol was approximately midnight, 1 extra strength Tylenol. She has had a mild earache. No runny nose or congestion. No cough. No sick contacts. She is not nauseated. She currently rates her pain a "7". She is not short of breath. No rashes. Only daily medication is control. Timing/Duration: abrupt Severity: moderate Location: throat Prearrival Treatment: over the counter meds Associated Symptoms: poor solids intake, sore throat, voice change (ASHISH CARR MD) Allergies and Home Medications Allergies Coded Allergies: No Known Drug Allergies (Unverified , 02/16/22) Patient Home Medication List Home Medication List Reviewed: Yes (ASHISH CARR MD) Amoxicillin/Potassium Clav (Amox Tr-K Clv 875-125 mg Tab) 875 Mg-125 Mg Tablet, 1 EACH PO BID Prescribed by: VANDANA CATALAN on 07/21/22 0738 Hydrocodone Bit/Acetaminophen (HYDROcodone/APAP 5 MG/325 MG TAB) 1 Tab Tab, 1 EA PO Q8H PRN for PAIN-MODERATE (5-7) Prescribed by: ARACELI CAMARA on 02/17/22 1254 Oseltamivir Phosphate (Tamiflu) 75 Mg Cap, 75 MG PO BID Prescribed by: ANDRIA WATKINS on 06/16/22 0101 Potassium Chloride (Potassium Chloride) 20 Meq Tablet.er, 20 MEQ PO DAILY Prescribed by: VANDANA CATALAN on 07/21/22 0749 Review of Systems Review of Systems Constitutional: see HPI Eyes: No Symptoms Reported Ears: Pain (Left) Throat: pain, swelling, aphonia Respiratory: no symptoms reported Cardiovascular: no symptoms reported Gastrointestinal: no symptoms reported LMP: Jun 20, 2022 Musculoskeletal: no symptoms reported Skin: no symptoms reported (ASHISH CARR MD) Past Smtjhgz-Tfdbqx-Znspij Hx Patient Social History Tobacco Use?: No Use of E-Cig and/or Vaping dev: Yes E-Cig or Vaping type used: Nicotine Use of E-Cig and/or Vaping Arnold: Current Everyday User Substance use?: No Alcohol Use?: No (ASHISH CARR MD) Immunizations Up To Date Influenza Vaccine Up-to-Date: No; Not Current First/Initial COVID19 Vaccinat: X2 Second COVID19 Vaccination Nabil: 2020 (ASHISH CARR MD) Past Medical History Surgery/Hospitalization HX: APPENDECTOMY Surgeries: Yes (pt has had laser treatment on right face for birthmark) Appendectomy Respiratory: No Cardiac: No Neurological: No Last Menstrual Period: Jun 21, 2022 Genitourinary: No Gastrointestinal: No Musculoskeletal: No Endocrine: No HEENT: No Loss of Vision: Denies Hearing Impairment: Denies Cancer: No Psychosocial: No Integumentary: Yes (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 oz. kg; 30.00 BMI Method: General Appearance: WD/WN, no apparent distress Eyes: bilateral eye normal inspection, bilateral eye PERRL, bilateral eye EOMI Ears: left ear auricle normal, left ear canal normal, left ear TM normal Nose: normal inspection Mouth/Throat: dental tenderness, pharynx swelling, pharynx tenderness, trismus (Minimal) Neck: full range of motion, lymphadenopathy (L), tender lateral Cardiovascular: regular rate, rhythm Respiratory: lungs clear, normal breath sounds, no respiratory distress, no accessory muscle use Neurologic/Psychiatric: alert, normal mood/affect, oriented x 3 Skin: normal color, warm/dry, other (Scattered port wine stains) (ASHISH CARR MD) Progress/Results/Core Measures Results/Orders Lab Results Laboratory Tests Test 07/21/22 06:01 Range/Units Sodium Level 143 135-145 MMOL/L Potassium Level 2.9 L 3.6-5.0 MMOL/L Chloride Level 108 H 98-107 MMOL/L Carbon Dioxide Level 22 21-32 MMOL/L Anion Gap 13 5-14 MMOL/L Blood Urea Nitrogen 6 L 7-18 MG/DL Creatinine 0.78 0.60-1.30 MG/DL Estimat Glomerular Filtration Rate 112 BUN/Creatinine Ratio 8 Glucose Level 99 70-105 MG/DL Calcium Level 8.8 8.5-10.1 MG/DL (VANDANA CATALAN MD) My Orders Orders - VANDANA CATALAN MD Ketorolac Injection (Toradol Injection) (07/21/22 06:15) (VANDANA CATALAN MD) Medications Given in ED Current Medications Medications Dose Ordered Sig/Jaden Route Start Time Stop Time Status Last Admin Dose Admin Ampicillin Sodium/ Sulbactam Sodium 3 gm/Sodium Chloride 100 ml @ 200 mls/hr ONCE ONCE IV 07/21/22 06:00 07/21/22 06:29 DC 07/21/22 06:39 200 MLS/HR Iohexol 100 ml ONCE ONCE IV 07/21/22 06:30 07/21/22 06:31 DC 07/21/22 06:26 75 ML Ketorolac Tromethamine 15 mg ONCE ONCE IVP 07/21/22 06:15 07/21/22 06:16 DC 07/21/22 06:09 15 MG Sodium Chloride 10 ml NEEDED PRN IV 07/21/22 06:30 07/21/22 06:27 10 ML Sodium Chloride 100 ml ONCE ONCE IV 07/21/22 06:30 07/21/22 06:31 DC 07/21/22 06:26 80 ML (VANDANA CATALAN MD) Vital Signs/I&O 07/21/22 05:29 Temp 36.4 Pulse 88 Resp 18 B/P (MAP) 156/119 (131) Pulse Ox 100 O2 Delivery Room Air (VANDANA CATALAN MD) Blood Pressure Mean: 131 Progress Progress Note : Progress Note 21-year-old female with above history coming in due to concerns for peritonsillar abscess. ABCs were intact and vitals were stable on presentation. Physical exam with tonsillar swelling and minimal trismus, she is tolerating her secretions and breathing normally. Patient was given IV Unasyn as well as fluids and Toradol for pain control. test is negative. CT soft tissue neck with likely phlegmon and reactive lymphadenopathy. No mp abscess that can be drained right now, but likely early abscess. She will be sent with a prescription for antibiotics. I believe she is otherwise stable for discharge with outpatient follow-up. She was sent home with strict return precautions (VANDANA CATALAN MD) Diagnostic Imaging Diagonstic Imaging: CT (soft tissue neck) Comments NAME: CRISPIN MAHONEY [facility] REC#: [id number] PT STATUS: REG ER : 2000 PHYSICIAN: ASHISH CARR MD ADMIT DATE: 07/21/22/ER Draft Date of Exam:07/21/22 CT NECK (SOFT TISSUE) W PROCEDURE: CT neck soft tissue with contrast. TECHNIQUE: Multiple contiguous axial images were obtained through the neck after the administration of contrast. Auto Exposure Controls were utilized during the CT exam to meet ALARA standards for radiation dose reduction. Date: July 21, 2022. Indication: 20-year-old female, sore throat for 2 days, left greater than right. Comparison: None. Findings: The orbits are grossly unremarkable in appearance. The bilateral parotid and submandibular glands are unremarkable. The thyroid gland is unremarkable in appearance. There is a focal area of low-attenuation measuring approximately 1.8 x 1.2 cm in axial extent within the anterior aspect of the palatine tonsils to the left of midline on axial image 37. There is additional tonsilar fullness at this level. There is no pronounced narrowing of the airway. The visualized portions of the lungs are clear. There are abnormally enlarged level 2A cervical lymph nodes bilaterally with one example on the right measuring 1.7 cm in short axis and on the left measure 1.4 cm in axis, both on axial image 44. There are additional prominent bilateral cervical lymph nodes at multiple levels. There is no identified acute bony abnormality. Impression: 1. Tonsillar fullness with focal area of abnormal low-attenuation in the left anterior palatine tonsils likely reflecting a developing tonsillar abscess in the appropriate clinical scenario. 2. Multiple abnormally enlarged bilateral cervical lymph nodes at multiple levels with adenopathy most prominent at the level 2A levels bilaterally. This may be reactive although correlation is recommended. Dictated on workstation # [id number] Dict: 07/21/22 0633 Trans: 07/21/22 0740 [facility] [id number] Interpreted by: NIKO VILLEGAS MD Electronically signed by: (VANDANA CATALAN MD) Departure Impression Primary Impression: Peritonsillar abscess Additional Impression: Hypokalemia Disposition: HOME, SELF-CARE Condition: Stable Departure-Patient Inst. Decision time for Depature: 07:48 (VANDANA CATALAN MD) Referrals: [facility] (PCP/Family) Primary Care Physician Patient Instructions: Peritonsillar Abscess, Adult Add. Discharge Instructions: You are developing an abscess near your tonsil, but its not formed yet. You will be on antibiotics for the next 10 days. Take qnqz-zac-smjbcyy ibuprofen 600 mg every 6 hours as needed for pain. If you have pain on top of that, you can take Tylenol 1000 mg every 6-8 hours as well. We also recommend doing salt water gargling. Scripts Potassium Chloride (Potassium Chloride) 20 Meq Tablet.er 20 MEQ PO DAILY for 7 Days, #7 TAB Prov: VANDANA CATALAN MD 07/21/22 Amoxicillin/Potassium Clav (Amox Tr-K Clv 875-125 mg Tab) 875 Mg-125 Mg Tablet 1 EACH PO BID for 10 Days, #20 TAB Prov: VANDANA CATALAN MD 07/21/22 Work/School Note: School/Childcare Release, Date Seen in the Emergency Department: Jul 21, 2022 Time Dismissed from Emergency Department: 07:38 Return to School: Jul 22, 2022 Restrictions: Return-No Fever (24hrs) Work Release Form Date Seen in the Emergency Department: Jul 21, 2022 ASHISH CARR MD Jul 21, 2022 05:54 VANDANA CATALAN MD Jul 21, 2022 07:40
[2022-07-21] MEDS ORDERED: AMPICILLIN/SULBACTAM INJECTION 3 GM in NS (IVPB) 100 ML IV ONE (06:00)
[2022-07-21 06:13] LABS: POTASSIUM 2.9 MMOL/L (3.6-5.0)
[2022-07-21 06:15] LABS: CALCIUM 8.8 MG/DL (8.5-10.1)
[2022-07-21] MEDS ORDERED: KETOROLAC 30 MG/ML VIAL IVP ONE (06:15)
[2022-07-21 06:19] LABS: CREATININE SERUM 0.78 MG/DL (0.60-1.30)
[2022-07-21] MEDS ORDERED: CATHETER FLUSH 10 ML SYR IV PRN (06:30)
[2022-07-21] MEDS ORDERED: IOHEXOL 350 MG/ML 100 ML (OMNIPAQUE 350) VIAL IV ONE (06:30)
[2022-07-21] MEDS ORDERED: NS 100 ML (IVPB) BAG IV ONE (06:30)
[2022-07-21] MEDS ORDERED: AMOX1TAB12 PO (07:38)
--- NOTE | 2022-07-21 07:41 | Diagnostic Imaging Report ---
PROCEDURE: CT neck soft tissue with contrast. TECHNIQUE: Multiple contiguous axial images were obtained through the neck after the administration of contrast. Auto Exposure Controls were utilized during the CT exam to meet ALARA standards for radiation dose reduction. Date: July 21, 2022. Indication: 20-year-old female, sore throat for 2 days, left greater than right. Comparison: None. Findings: The orbits are grossly unremarkable in appearance. The bilateral parotid and submandibular glands are unremarkable. The thyroid gland is unremarkable in appearance. There is a focal area of low-attenuation measuring approximately 1.8 x 1.2 cm in axial extent within the anterior aspect of the palatine tonsils to the left of midline on axial image 37. There is additional tonsilar fullness at this level. There is no pronounced narrowing of the airway. The visualized portions of the lungs are clear. There are abnormally enlarged level 2A cervical lymph nodes bilaterally with one example on the right measuring 1.7 cm in short axis and on the left measure 1.4 cm in axis, both on axial image 44. There are additional prominent bilateral cervical lymph nodes at multiple levels. There is no identified acute bony abnormality. Impression: 1. Tonsillar fullness with focal area of abnormal low-attenuation in the left anterior palatine tonsils likely reflecting a developing tonsillar abscess in the appropriate clinical scenario. 2. Multiple abnormally enlarged bilateral cervical lymph nodes at multiple levels with adenopathy most prominent at the level 2A levels bilaterally. This may be reactive although correlation is recommended. Dictated by: Dictated on workstation # [id number]
[2022-07-21] MEDS ORDERED: POTA-51 PO (07:49)
[2022-07-21 08:03] VITALS: BP 145/105
== END 2022-07-21 08:03 | disposition home or self-care (01) ==
LOC: EDUNIT# 05:24 → ER 05:26
DX: J36 Peritonsillar abscess (principal); E87.6 Hypokalemia; F17.290 Nicotine dependence, other tobacco product, uncomplicated; Z28.311 Partially vaccinated for COVID-19
CPT/HCPCS: 36415; 70491; 80048; 84703